=== PATIENT | male | born 1985 | race Caucasian/White ===

== ENCOUNTER 2017-11-11 22:54 | Emergency (ER) | payer MEDICAID ==
[2017-11-11] MEDS ORDERED: DEXAMETHASONE 10 MG/ML VIAL PO STA (23:08)
[2017-11-11 23:15] VITALS: BP 133/73
--- NOTE | 2017-11-11 23:55 | ED Physician Documentation ---
PD HPI HEENT - Stated complaint Stated Complaint: THROAT SWOLLEN - Chief complaint Chief Complaint: Heent - History obtained from History obtained from: Patient - History of Present Illness Timing - onset: Today Timing - details: Abrupt onset, Still present Location: Throat Associated symptoms: No: Fever, Congestion, Facial swelling Similar symptoms before: Has not had sx before Recently seen: Not recently seen - Additional information Additional information: Patient is a 32 year old male with no significant past medical history who is presenting to the emergency department for throat swelling. Patint states that he woke up from sleep with a swollen throat. Patient states that he has never had symptoms like this before. Review of Systems Constitutional: denies: Fever, Chills Eyes: reports: Reviewed and negative Ears: reports: Reviewed and negative Nose: reports: Reviewed and negative Throat: reports: Sore throat, Swollen tonsils Cardiac: reports: Reviewed and negative Respiratory: reports: Reviewed and negative. denies: Cough, Wheezing GI: denies: Nausea, Vomiting : reports: Reviewed and negative Skin: denies: Rash, Lesions Musculoskeletal: reports: Reviewed and negative Neurologic: reports: Reviewed and negative Immunocompromised: denies: Immunocompromised PD PAST MEDICAL HISTORY - Past Medical History Past Medical History: No - Past Surgical History Past Surgical History: Yes Ortho: Other - Present Medications Home Medications: Ambulatory Orders Medication Instructions Recorded Confirmed Amox/Clav 875/125 [Augmentin] 1 each PO Q12H #14 tablet 11/11/17 FLUoxetine [PROzac] 11/11/17 Pantoprazole Sodium [Protonix] 11/11/17 clonazePAM [Clonazepam] 0.5 mg PO DAILY PRN 11/11/17 11/11/17 - Allergies Allergies/Adverse Reactions: Allergies Allergy/AdvReac Type Severity Reaction Status Date / Time No Known Drug Allergies Allergy Verified 11/11/17 22:59 - Social History Does the pt smoke?: Yes Smoking Status: Current every day smoker Does the pt drink ETOH?: No Does the pt have substance abuse?: No - Immunizations Immunizations are current?: Yes - POLST Patient has POLST: No PD ED PE NORMAL - Vitals Vital signs reviewed: Yes - General General: Alert and oriented X 3 - HEENT HEENT: Atraumatic, PERRL, Moist mucous membranes - Neck Neck: Supple, no meningeal sign - Cardiac Cardiac: RRR, No murmur - Respiratory Respiratory: No respiratory distress, Clear bilaterally - Abdomen Abdomen: Soft, Non tender, Non distended - Derm Derm: Normal color, Warm and dry, No rash - Extremities Extremities: No deformity - Neuro Neuro: Alert and oriented X 3, No motor deficit, Normal speech Eye Opening: Spontaneous Motor: Obeys Commands Verbal: Oriented GCS Score: 15 PD ED PE EXPANDED - HEENT HEENT: Other (enlarged uvula) Results - Vitals Vitals: Vital Signs - 24 hr 11/11/17 22:58 Temperature 36.7 C Heart Rate 78 Respiratory 18 Rate Blood Pressure 133/73 H O2 Saturation 98 Oxygen O2 Source Room air - Labs Labs: Laboratory Tests 11/11/17 11/11/17 23:08 23:28 Infectious [place] Assay NEGATIVE Group A Strep Rapid Negative PD MEDICAL DECISION MAKING - ED course Complexity details: reviewed old records, reviewed results, re-evaluated patient , considered differential, d/w patient ED course: Patient was seen and examined at bedside. rapid strep and mono were performed. Patient was treated with decadron, ibuprofen and augmentin. While the exact etiology of the uvulitis was uncleared patient was covered with antibiotics. Patient was able to swallow his secretions and was stable for discharge with outpatient follow up. Departure - Departure Disposition: 01 Home, Self Care Clinical Impression: Uvulitis Condition: Good Instructions: ED Uvulitis Follow-Up: primary,care provider [Other] - Within 3 Days Prescriptions: Amox/Clav 875/125 [Augmentin] 1 each PO Q12H #14 tablet Comments: Your symptoms today are being caused by uvuilitis. Your rapid strep was negative but that only accounts for group A strep. You are being treated with augmentin which will cover multiple bacteria. You should also gargle with salt water to help reduce the inflammation. You should follow up with your doctor if your symptoms don't improve or if they worsen over the next few days. You may return to the emergency department at any time for new, worsening or uncontrollable symptoms. Discharge Date/Time: 11/12/17 00:15
[2017-11-11] MEDS ORDERED: AMOX/CLAV 875 MG/125 MG TABLET PO STA (23:58)
[2017-11-12] MEDS ORDERED: IBUPROFEN 600 MG TABLET PO STA (00:08)
== END 2017-11-12 00:15 | disposition home or self-care (01) ==
LOC: ED 22:54
DX: K12.2 Cellulitis and abscess of mouth (principal)
CPT/HCPCS: 86308; 87070; 87430; 99283; A9270